=== PATIENT | female | born 1935 | race Caucasian/White ===

== ENCOUNTER 2025-03-02 13:34 | Emergency (ER) | payer MEDICARE, OTHER ==
[~2025-03-02] VITALS: Ht 172.7 cm; Wt 71.8 kg
[2025-03-02 13:40] VITALS: TEMP 97.6
--- NOTE | 2025-03-02 14:23 | Physician Documentation ---
History of Present Illness ~ Chief Complaint: Hip pain Stated Complaint: LEG PAINS Time Seen by MD: 13:45 HPI 89-year-old of female who has recently dealt with bouts of constipation and rehabilitation states that she has developed increased right hip pain after falling off the side of her bed proximally six days ago. She does normally use a walker but now has severe pain when getting up and down to go to the restroom. Denies any numbness or tingling or fevers. He is alert and oriented Day of Onset: Mar 02, 2025 Medication Reconciliation Allergies: Coded Allergies: No Known Allergies (Unverified , 03/02/25) Discontinued Medications Hydrocodone Bit/Acetaminophen 5/325 MG ([place] 5/325 MG), 1 TAB PO Q6H PRN for pain Discontinued Reason: Prescription changed Review of Systems All Other Systems at this time: Reviewed and Negative ROS As stated above in the HPI, otherwise all systems are reviewed and negative. Physical Exam Vital Signs: Temperature: 97.6, Source: Temporal, Heart Rate: 86, Respiratory Rate: 16, BP: 146/89, Pulse Oximetry: 98, Weight: 71.820 Oxygen Flow Rate: 0 Physical Exam General: Alert, no apparent distress. Respiratory: Lungs clear, no respiratory distress. Cardiovascular: Regular rate and rhythm, no murmurs. Gastrointestinal: Soft, nontender, nondistended. Bowels sounds present. Extremities: Normal range of motion, no deformity. no Notable internal or external rotation of the right hand Neurologic: Oriented x4. Psychiatric: Normal mood and affect. Skin: Normal color, warm and dry. No edema, no ecchymosis. Progress Results/Orders Results/Orders Orders - SHAYNE AMBRIZ PEDIATRIC MEDICAL ASSISTANT Ct Abdomen Pelvis (03/02/25 15:25) Urinalysis, Cult If Indicated (03/02/25 16:18) Completed Orders - SHAYNE AMBRIZ PEDIATRIC MEDICAL ASSISTANT Ct Abdomen Pelvis (03/02/25 15:25) Hydrocodone/Apap 5/325mg Tab ([place] 5/32 (03/02/25 14:40) Cbc/Diff (03/02/25 16:18) CMP (03/02/25 17:13) Lipase (03/02/25 17:13) Hydrocodone/Apap 5/325mg Tab ([place] 5/32 (03/02/25 18:40) Medications Received in ER Medications (Trade) Dose Ordered Sig/Cesia Route PRN Reason Start Time Stop Time Status Last Admin Dose Admin ([place] 5/325mg tablet) 1 tab ONCE ONCE PO 03/02/25 14:40 03/02/25 14:41 DC 03/02/25 14:45 1 TAB ([place] 5/325mg tablet) 1 tab ONCE ONCE PO 03/02/25 18:40 03/02/25 18:41 DC 03/02/25 18:51 1 TAB Vital Signs 03/02/25 03/02/25 03/02/25 03/02/25 13:40 14:30 14:45 18:14 Temp 97.6 Pulse 86 77 Resp 16 16 16 17 B/P (MAP) 146/89 146/78 (100) 122/73 Pulse Ox 98 97 98 O2 Flow Rate 0 0 03/02/25 18:51 Resp 17 Laboratory Tests Test 03/02/25 16:41 03/02/25 17:34 White Blood Count 8.5 Red Blood Count 4.91 Hemoglobin 16.2 H Hematocrit 46.9 H Mean Corpuscular Volume 95.5 Mean Corpuscular Hemoglobin 33.0 H Mean Corpuscular Hemoglobin Concent 34.5 Red Cell Distribution Width 13.8 Platelet Count 344 Mean Platelet Volume 7.0 L Neutrophils (%) (Auto) 74.0 Lymphocytes (%) (Auto) 13.3 L Monocytes (%) (Auto) 12.0 Eosinophils (%) (Auto) 0.3 Basophils (%) (Auto) 0.4 Neutrophils # (Auto) 6.3 Lymphocytes # (Auto) 1.1 Monocytes # (Auto) 1.0 H Eosinophils # (Auto) 0.0 Basophils # (Auto) 0.0 CBC Comment Chemistry Comments Sodium Level 129 L Potassium Level 3.7 Chloride Level 91 L Carbon Dioxide Level 26.3 Anion Gap 12 Blood Urea Nitrogen 14 Creatinine 0.91 H Estimated GFR/1.73 m2 58 BUN/Creatinine Ratio 15.4 Glucose Level 123 H Calcium Level 9.1 Total Bilirubin 1.1 H Aspartate Amino Transf (AST/SGOT) 19 Alanine Aminotransferase (ALT/SGPT) 11 L Alkaline Phosphatase 90 Total Protein 7.9 Albumin 4.1 Globulin 3.8 Albumin/Globulin Ratio 1.1 Lipase 20 Medical Decision Making Findings Patient's CT abdomen and pelvis showed no signs of hip fracture displacement dislocation or AVN. Incidentally her CT showed signs of potential diverticulitis and a distended gallbladder secondary to cholelithiasis. I ordered labs to evaluate for this however her labs did not show any signs of elevated LFTs nor does she have a white blood cell count. At this time I feel it is prudent to discharge her for outpatient therapy and further evaluation Offered hospitalization and that she declined Differential Dx:Considerations: Include: Avascular necrosis, Arthritis, Arthritis-Rheumatoid, Arthritis-Septic, Bursitis, Contusion, Dislocation, DJD, Fracture-femur, Fracture-hip, Fracture-open, Fracture-pelvis, Gout, Hernia, Cvuu-[id number] dz., Neurovascular injury, Slip capital femoral epip, Sprain, Transient synovitis, Other Departure Disposition: HOME / SELF CARE / HOMELESS Impression: Primary Impression: Hip pain Condition: Stable Discharge Instructions: Contusion (Bruise) Additional Instructions: For CT did not show any signs of acute fracture displacement or dislocation. You may require an MRI to evaluate for internal derangement of your right hip pain this order in the outpatient setting from your primary care or through a referral to orthopedics Referrals: NO PRIMARY CARE PROVIDER (PCP) Prescriptions Hydrocodone Bit/Acetaminophen 5/325 MG ([place] 5/325 MG) 5 Mg/325 Mg Tablet 1 TAB PO Q6H PRN for pain, #14 TAB Prov: SHAYNE AMBRIZ NP 03/02/25 Education Educated: Patient Educated regarding: diagnosis Signature Scribe Signature: v Attestation: Scribed for Shayne Ambriz Np by Shayne Davis NP . 03/02/25 18:57 SHAYNE AMBRIZ NP Mar 02, 2025 14:23
[2025-03-02 14:30] VITALS: PULSE 77
[2025-03-02] MEDS: HYDROcodone/acetaminophen 5mg/325mg tablet PO ONE ×2 (14:45→18:51)
--- NOTE | 2025-03-02 15:50 | RADIOLOGY REPORT ---
CLINICAL INFORMATION: Fall injury. Hip pain. TECHNIQUE: Axial CT images of the abdomen and pelvis were obtained without IV contrast. Coronal and sagittal reformatted images were obtained, reviewed, and stored. Evaluation of the parenchymal organs is limited without IV contrast. Evaluation of the bowel and mesentery is limited without oral contrast. All CT scans at this medical facility are performed using dose modulation techniques as appropriate to a performed exam including the following: Automated exposure control was utilized; adjustment of the MA and/or KV according to patient size; and use of iterative reconstruction technique. CTDIvol = 14.8, 11.19, 0.14 mGy DLP = 562.85 mGy-cm COMPARISON: None FINDINGS: Lung bases: Calcified pleural plaque in the posterior aspect of the right lung base. Partially visualized moderate cardiomegaly. Liver: Grossly unremarkable in its noncontrast enhanced appearance. No abnormal density or focal lesion identified. Biliary: Gallbladder is mildly distended. There are small calcified gallstones in the dependent portions of the gallbladder. Spleen: Unremarkable. Pancreas: Mildly to moderately atrophic pancreas. Adrenal glands: Left adrenal nodule measures up to 1.8 cm, with density consistent with a benign lipid rich adenoma. Thickened right adrenal gland with probable 1.4 cm nodule also most consistent with a benign lipid rich adenoma based on its density. Kidneys: No hydronephrosis. Probable arterial calcifications at the renal júnior bilaterally. There is a small 2 mm calcification at the inferior pole of the right kidney, possible nonobstructing calculus. No obstructing calculi visualized. Aorta/Vascular: Dense arterial calcification. No abdominal aortic aneurysm. Lymph nodes: No mass or lymphadenopathy. Bowel/mesentery: Nonspecific nondilated fluid-filled small bowel loops. No small bowel obstruction. Appendix is visualized and appears unremarkable. Moderate to large amount of stool in the colon. Scattered colonic diverticula without adjacent inflammatory changes to suggest diverticulitis. Small to moderate hiatal hernia. Pelvic organs: Uterus is surgically absent. Bladder: Unremarkable. No mass. Abdominal wall: No mass or hernia. Bones: Postsurgical changes of prior open reduction internal fixation of the right hip partially visualized. Beam hardening artifact from the surgical hardware limits evaluation of adjacent structures. Visualized portions of the surgical hardware appear intact. No acute fracture visualized in this location. Chronic deformity of the right proximal femur from the previous fracture. No evidence of acute fracture in the left hip or in the rest of the visualized osseous structures. Multilevel degenerative disc disease in the lumbar spine with disc space narrowing, endplate sclerosis, and endplate spurring. Multilevel vacuum disc disease also noted. IMPRESSION: 1. Postsurgical changes of open reduction internal fixation in the right hip partially visualized. Beam hardening artifact from the surgical hardware limits evaluation of adjacent structures. No acute fracture visualized in this location. Visualized portions of the surgical hardware appear intact. Correlate with clinical findings. If clinically indicated, dedicated radiographs could be obtained to further evaluate. 2. Otherwise, no evidence of acute fracture. 3. Moderate stool throughout the colon. 4. Scattered colonic diverticula without adjacent inflammatory changes to suggest diverticulitis. 5. Nonspecific nondilated fluid-filled small bowel loops. Findings may be seen with ileus or enteritis in the appropriate clinical setting. No small bowel obstruction. 6. 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 7. Cholelithiasis with distended gallbladder. 8. Additional findings as detailed above.
[2025-03-02 17:07] LABS: MEAN PLATELET VOLUME 7.0 FL (7.4-10.4); RED CELL DISTRIBUTION WIDTH 13.8 % (11.5-14.5)
[2025-03-02 18:04] LABS: CREATININE 0.91 MG/DL (0.40-0.90); TOTAL CARBON DIOXIDE 26.3 MMOL/L (24-32); eCRCL 42 ML/MIN; eGFR 58 ML/MIN
[2025-03-02 18:14] VITALS: BP 122/73; O2SAT 98
[2025-03-02 18:51] VITALS: RESP 17
[2025-03-02] MEDS ORDERED: HYDR-3965 PO (18:56)
== END 2025-03-02 19:04 | disposition home or self-care (01) ==
LOC: ER 13:34
DX: M25.551 Pain in right hip (principal); W06.XXXA Fall from bed, initial encounter; Y93.89 Activity, other specified; Y92.89 Other specified places as the place of occurrence of the external cause; Y99.8 Other external cause status
CPT/HCPCS: 36415; 74176; 80053; 83690; 85025; 99284

== ENCOUNTER 2025-03-28 14:06 | Outpatient (CLI) | payer MEDICARE ==
[~2025-03-28 14:06] MED LIST: HYDR-3965 PO
--- NOTE | 2025-03-28 15:47 | RADIOLOGY REPORT ---
EXAM: DI HIP,BI,CMPLT(AP PELVIS) CLINICAL INDICATION: CHRONIC PAIN; DEGENERATIVE JOINT DIEASE TECHNIQUE: DI HIP,BI,CMPLT(AP PELVIS) Comparison: CT CT ABDOMEN PELVIS on DOS: 03/02/25 FINDINGS/IMPRESSION: There is no evidence of acute fracture or dislocation. Intramedullary ghulam in the right femur. Severe bilateral hip osteoarthritis The alignment is anatomical. There is no radiopaque foreign body.
--- NOTE | 2025-03-28 15:48 | RADIOLOGY REPORT ---
INDICATION: CHRONIC PAIN; DEGENERATIVE JOINT DIEASE COMPARISON: DI HIP,BI,CMPLT(AP PELVIS) on DOS: 03/28/25, CT CT ABDOMEN PELVIS on DOS: 03/02/25 TECHNIQUE: 3 views of the lumbar spine were obtained. FINDINGS: The lumbar vertebral alignment is normal. Severe multilevel degenerative changes at L3-L4 through L5-S1 causing moderate to severe neural foraminal and spinal canal stenosis. Extensive atherosclerosis. Significant scoliosis. No acute fracture, vertebral compression deformity or aggressive osseous lesions. The paravertebral soft tissues are grossly unremarkable. IMPRESSION: No acute fracture or subluxation.
== END 2025-03-28 23:59 | disposition home or self-care (01) ==
LOC: RAD 14:06
PROVIDERS: ATTEND Nurse Practitioner Family
DX: M16.0 Bilateral primary osteoarthritis of hip (principal); M47.819 Spondylosis without myelopathy or radiculopathy, site unspecified; G89.29 Other chronic pain; R26.9 Unspecified abnormalities of gait and mobility; M48.07 Spinal stenosis, lumbosacral region; I25.10 Atherosclerotic heart disease of native coronary artery without angina pectoris; M47.817 Spondylosis without myelopathy or radiculopathy, lumbosacral region
CPT/HCPCS: 72110; 73521